=== PATIENT | female | born 1975 | race Caucasian/White ===

== ENCOUNTER 2025-03-02 15:06 | Emergency (ER) | payer MEDICAID ==
[~2025-03-02] VITALS: Ht 167.6 cm; Wt 70.0 kg
[2025-03-02 15:09] VITALS: O2SAT 98
[2025-03-02] MEDS ORDERED: MELA10CA MT (17:37)
[2025-03-02 18:43] VITALS: BP 126/74; PULSE 88; RESP 18; TEMP 36.6; O2SAT 98
== END 2025-03-02 18:44 | disposition home or self-care (01) ==
LOC: ER 15:16
DX: G47.00 Insomnia, unspecified (principal); E11.9 Type 2 diabetes mellitus without complications; I10 Essential (primary) hypertension; Z88.0 Allergy status to penicillin
CPT/HCPCS: 99283